=== PATIENT | female | born 1950 | race Caucasian/White ===

== ENCOUNTER 2020-10-19 09:57 | Outpatient (REF) | payer MEDICARE, SELFPAY ==
--- NOTE | 2020-10-19 11:34 | MHC.AU.ANO ---
Adult Audiological Evaluation Date of Visit: 10/19/20 Gifts Officer Used: Not Applicable Reason for Appointment: Audiologic evaluation due to perception of gradual decrease in hearing ability. Greer reports she has more difficulty understanding speech when someone is speaking from a different room or when background noise is present. Does patient feel they have a hearing loss?: Yes If Yes, Which Ear?: Both Ears When Was Hearing Difficulty First Noticed?: Over the past year Has hearing been tested previously?: Yes Previous Hearing Test Results: [facility], many years ago. Results are in storage and being requested. 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, Angiogram and Angioplasty with Stent, Knee Replacement Medication List: Gabapentin, Pantoprazole, Lisinopril, Letrozole, Atorvastatin, Metoprolol, Sertraline, Aspirin, Tylenol Arthritis, Calcium, Multivitamin Otoscopy: Right Ear: Small amount of non-occluding cerumen Left Ear: Small amount of non-occluding cerumen Tympanometry: Tympanometry performed due to: To assess integrity of the middle ear system Right Ear: Normal Middle Ear System (Type A) Left Ear: Normal Middle Ear System (Type A) Otoacoustic Emissions Frequency Range Used: 1.6-8 kHz Right Ear Results: Present 5190-3966 Hz with 4500 Hz being present but reduced Analysis: Present emissions suggest normal cochlear function Rules out peripheral hearing loss greater than a mild degree Left Ear Results: Present 3414-4604 Hz, Absent 8000 Hz Analysis: Present emissions suggest normal cochlear function Rules out peripheral hearing loss greater than a mild degree Hearing Evaluation: Transducer(s) Used: Insert Earphones Method: Conventional Audiometry Stimuli Used: Pure Tones Right Ear: Description of Hearing: Normal hearing thresholds 250-8000 Hz Left Ear: Description of Hearing: Normal hearing thresholds 250-8000 Hz Speech Recognition Threshold (SRT): Method Used: Monitored Live Voice Stimuli Used: Spondee Words Right Ear: 5 dB HL Left Ear: 5 dB HL Word Discrimination: Method: Recorded Lists Word Lists Used: NU-6 Right Ear: 100% at 50 dB HL Left Ear: 100% at 50 dB HL QuickSIN: Binaural Quick SIN Test: 0 dB SNR Loss. This result falls within the normal range suggesting Greer does not experience any more difficulty understanding speech with increasing levels of background noise compared to other normal hearing individuals in the controlled test environment. Discussed in real world environments, speech understanding may be more difficult as the speaker may not have her full attention before talking to her, or other distractions may interfer with speech understanding. Recommendations: No further audiological action is indicated at this time. If a change in hearing ability is suspected in the future, an audiologic re-evaluation is advised. Diagnosis: Primary Diagnosis: H93.293 (Concern of) Abnormal Auditory Perception Services Performed: Comprehensive Audiological Evaluation (CPT 69182) Diagnostic Otoacoustic Emissions (CPT 36628, 26+TC) Tympanometry (CPT 35868) Signature: Provider: Orville Murry, CCC-A
== END 2020-10-19 09:58 | disposition home or self-care (01) ==
LOC: HO.SH 09:57
PROVIDERS: Visit Provider Physician Assistant Medical
DX: H93.293 Other abnormal auditory perceptions, bilateral (principal)
CPT/HCPCS: 92557; 92567; 92588

== ENCOUNTER 2022-10-27 10:19 | Outpatient (REF) | payer MEDICARE, SELFPAY ==
[2022-10-27 12:33] LABS: Vitamin B12 548 pg/mL (200-900)
== END 2022-10-27 10:20 | disposition home or self-care (01) ==
LOC: HO.LAB 10:19
PROVIDERS: Visit Provider Psychiatry & Neurology Neurology
DX: G31.84 Mild cognitive impairment of uncertain or unknown etiology (principal)
CPT/HCPCS: 36415; 82607

== ENCOUNTER → 2022-12-02 13:55 | Outpatient (REF) | payer MEDICARE, SELFPAY | LOC: HO.SL 13:55 | PROVIDERS: PCP Internal Medicine; Visit Provider Psychiatry & Neurology Neurology | DX: G47.33 Obstructive sleep apnea (adult) (pediatric) (principal) | CPT/HCPCS: 95806 ==

== ENCOUNTER → 2022-12-02 19:00 | Outpatient (BNV) | payer MEDICARE, SELFPAY | PROVIDERS: PCP Internal Medicine; Visit Provider Internal Medicine | DX: G47.33 Obstructive sleep apnea (adult) (pediatric) (principal) | CPT/HCPCS: 95806 ==